=== PATIENT | male | born 1975 | race Caucasian/White ===

== ENCOUNTER → 2021-02-07 | Outpatient (CLI) | payer OTHER ==
--- NOTE | 2021-02-07 08:53 | REP ---
INDICATION: NON SPECIFIC ABNORMAL FINDING OF LUNG FIELD COMPARISON: None TECHNIQUE: Axial noncontrast images from the thoracic inlet to the upper abdomen with coronal and sagittal reformations. This CT examination was performed using the following dose reduction techniques: Automated exposure control, adjustment of mA and/or kv according to the patient's size, and use of iterative reconstruction technique. FINDINGS: The bilateral lung wyman are well aerated and clear. No acute consolidation, suspicious nodule or mass. No pleural effusion. No pneumothorax. Tracheobronchial tree is patent. No significant adenopathy identified mediastinum demonstrates normal thoracic aorta, pulmonary vasculature, and heart/pericardium. Surrounding musculoskeletal structures are intact. Limited upper abdomen demonstrates normal bilateral adrenal glands. IMPRESSION: Normal noncontrast chest CT. No acute mediastinal or pleuroparenchymal process appreciated. <Electronically signed by Jeet Elizondo > 02/07/21 [id number]
== END ==
LOC: M RAD 07:12
PROVIDERS: ATTEND Physician Assistant
DX: R91.8 Other nonspecific abnormal finding of lung field (principal)

== ENCOUNTER → 2021-10-08 | Outpatient (REF) | LOC: M PLAIMG 11:28 | PROVIDERS: ATTEND Internal Medicine | DX: R06.02 Shortness of breath (principal) ==